=== PATIENT | female | born 1960 | race Caucasian/White ===

== ENCOUNTER 2017-07-27 15:08 | Emergency (ER) | payer OTHER, SELFPAY ==
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
== END 2017-07-27 16:47 ==
LOC: JD.ED 15:08
DX: F10.129 Alcohol abuse with intoxication, unspecified (principal); Y90.0 Blood alcohol level of less than 20 mg/100 ml; F17.210 Nicotine dependence, cigarettes, uncomplicated
CPT/HCPCS: 36415; 80053; 85025; 85610; 99283; G0480; 99282

== ENCOUNTER 2024-10-17 07:08 | Day surgery (SDC) | payer MEDICAID ==
[~2024-10-17 07:08] MED LIST: Sodium Chloride 0.9% 10 ML Syringe FLUSH PRN; Sodium Chloride 0.9% 10 ML Syringe FLUSH SCH
[2024-10-17] MEDS ORDERED: Ondansetron 4 MG/2 ML SDV ONE (07:13)
[2024-10-17] MEDS ORDERED: Propofol 200 MG/20 ML SDV ONE ×2 (07:13→07:15)
[2024-10-17] MEDS ORDERED: fentaNYL 100 MCG/2 ML SDV ONE (07:13)
[2024-10-17] MEDS ORDERED: Lidocaine 1% 2 ML ONE ×2 (07:14→11:09)
[2024-10-17] MEDS: Lactated Ringers 1,000 ML IV SCH (07:56)
== END 2024-10-17 09:55 | disposition home or self-care (01) ==
LOC: JD.SDS 07:08
PROVIDERS: ATTEND Surgery
DX: K22.70 Barrett's esophagus without dysplasia (principal); R13.10 Dysphagia, unspecified; K31.89 Other diseases of stomach and duodenum; E78.2 Mixed hyperlipidemia; F41.9 Anxiety disorder, unspecified; F32.A Depression, unspecified; F17.210 Nicotine dependence, cigarettes, uncomplicated; Z79.899 Other long term (current) drug therapy
CPT/HCPCS: 43239; J2003; J2405; J2704; J3010; J7120; 00731